=== PATIENT | female | born 1995 | race Caucasian/White ===

== ENCOUNTER 2020-10-04 18:02 | Emergency (ER) | payer MEDICAID ==
[~2020-10-04] VITALS: Ht 152.4 cm; Wt 58.0 kg
[2020-10-04 18:16] VITALS: BP 112/72
== END 2020-10-05 00:23 | disposition left against medical advice (07) ==
LOC: ER 18:02
DX: Z53.21 Procedure and treatment not carried out due to patient leaving prior to being seen by health care provider (principal)